=== PATIENT | female | born 1930 | race Two or more races ===

== ENCOUNTER 2020-09-20 13:03 | Emergency (ER) | payer MEDICARE, MEDICAID ==
[2020-09-20 13:12] VITALS: BP 154/81
--- NOTE | 2020-09-20 13:24 | ER Document Report ---
ED Medical Screen (RME) - General Chief Complaint: Arm Injury Stated Complaint: SHOULDER/ARM PAIN Time Seen by Provider: 09/20/20 13:19 Primary Care Provider: ANGELY STACK MD [Primary Care Provider] - Follow up as needed Notes: HPI: 89-year-old female presenting for left back and shoulder pain. Was moving a heavy object 3 days ago now with increasing pain radiating through the left trapezius region into the left shoulder region and down the arm. No anterior chest pain. Has been taking Motrin with no relief of the discomfort. PHYSICAL EXAMINATION: Mild tenderness to the left of the thoracic spine, trapezius region. No tenderness on palpation of the shoulder girdle directly or down the left arm I have greeted and performed a rapid initial assessment of this patient. A comprehensive ED assessment and evaluation of the patient, analysis of test results and completion of medical decision making process will be conducted by an additional ED providers. - Related Data Allergies/Adverse Reactions: No Known Allergies Allergy (Verified 09/20/20 13:20) Past Medical History - Social History Chew tobacco use (# tins/day): No Frequency of alcohol use: None Drug Abuse: None - Past Medical History Cardiac Medical History: Denies: Hx Coronary Artery Disease, Hx Heart Attack, Hx Hypertension Pulmonary Medical History: Denies: Hx Asthma, Hx Bronchitis, Hx COPD, Hx Pneumonia Neurological Medical History: Denies: Hx Cerebrovascular Accident, Hx Seizures Musculoskeltal Medical History: Denies Hx Arthritis Past Surgical History: Denies: Hx Pacemaker - Immunizations Hx Diphtheria, Pertussis, Tetanus Vaccination: No Physical Exam - Vital signs Vitals: Temp Pulse Resp BP Pulse Ox 98.4 F 79 16 154/81 H 98 09/20/20 13:09 09/20/20 13:09 09/20/20 13:09 09/20/20 13:09 09/20/20 13:09 Course - Vital Signs Vital signs: Temp Pulse Resp BP Pulse Ox 98.4 F 79 16 154/81 H 98 09/20/20 13:09 09/20/20 13:09 09/20/20 13:09 09/20/20 13:09 09/20/20 13:09 Doctor's Discharge - Discharge Referrals: ANGELY STACK MD [Primary Care Provider] - Follow up as needed
--- NOTE | 2020-09-20 14:30 | RADIOLOGY REPORT (SQ) ---
EXAM DESCRIPTION: SHOULDER LEFT 2 OR MORE VIEWS IMAGES COMPLETED DATE/TIME: 09/20/2020 12:43 pm REASON FOR STUDY: trauma. COMPARISON: None. NUMBER OF VIEWS: Three views. TECHNIQUE: Internal rotation, external rotation, and Y view images acquired of the left shoulder. LIMITATIONS: None. FINDINGS: MINERALIZATION: Osteopenia. BONES: No acute fracture. No worrisome bone lesions. JOINTS: No dislocation. VISUALIZED LUNGS AND RIBS: No pneumothorax. Chronic healed left lateral rib fractures. No acute fra cture. SOFT TISSUES: No radiopaque foreign body. OTHER: No other significant finding. IMPRESSION: No acute fracture or dislocation of the left shoulder. TECHNICAL DOCUMENTATION: JOB ID: [id number] 2010 [employer]- All Rights Reserved Reading location - IP/workstation name: [email or web address]
--- NOTE | 2020-09-20 14:32 | RADIOLOGY REPORT (SQ) ---
EXAM DESCRIPTION: T SPINE AP/LAT IMAGES COMPLETED DATE/TIME: 09/20/2020 12:43 pm REASON FOR STUDY: trauma. COMPARISON: None. NUMBER OF VIEWS: Two views. TECHNIQUE: AP and lateral radiographic images acquired of the thoracic spine. LIMITATIONS: None. FINDINGS: MINERALIZATION: Osteopenia. ALIGNMENT: S-shaped scoliotic curvature of the thoracolumbar spine. Accentuated kyphosis. VERTEBRAE: Evaluation is extremely limited on radiograph secondary to diffuse osteopenia. There are multiple compression deformities, age indeterminate. DISCS: Degenerative disc disease with loss of intervertebral disc heights. HARDWARE: None in the spine. MEDIASTINUM AND SOFT TISSUES: Normal heart size and aortic contour. No soft tissue abnormality. VISUALIZED LUNG SANCHEZ: Clear. OTHER: No other significant finding. IMPRESSION: Marked osteopenia limits evaluation on radiograph. Accentuated kyphosis and S-shaped sc oliotic curvature. Multiple ctip-is-wcotewmd compression deformities are age indeterminate. Clinica l correlation is recommended. CT or MRI may provide additional information as clinically indicated. TECHNICAL DOCUMENTATION: JOB ID: [id number] 2010 [employer]- All Rights Reserved Reading location - IP/workstation name: [email or web address]
--- NOTE | 2020-09-20 14:40 | ER Document Report ---
Entered by HALIE SHANE SCRIBE 09/20/20 1425 Acting as scribe for:TE CRAMER MD ED General - General Chief Complaint: Arm Injury Stated Complaint: SHOULDER/ARM PAIN Time Seen by Provider: 09/20/20 13:19 Primary Care Provider: ANGELY STACK MD [Primary Care Provider] - Follow up as needed Mode of Arrival: Ambulatory Information source: Patient Notes: This 89 year old female patient presents to the emergency department today with complaints of left upper back and left upper extremity pain. Patient is Yoruba speaking and is being translated by her son at bedside. She reports that she was moving a very large potted plant and developed this pain after. There has been no injury or trauma. - Related Data Allergies/Adverse Reactions: No Known Allergies Allergy (Verified 09/20/20 13:20) Past Medical History - General Information source: Patient - Social History Smoking Status: Never Smoker Cigarette use (# per day): No Chew tobacco use (# tins/day): No Frequency of alcohol use: None Drug Abuse: None Lives with: Family Family History: Reviewed & Not Pertinent Patient has homicidal ideation: No - Past Medical History Cardiac Medical History: Reports: Hx DVT, Hx Hypercholesterolemia Past Surgical History: Reports: Hx Cholecystectomy - Immunizations Hx Diphtheria, Pertussis, Tetanus Vaccination: No Review of Systems - Review of Systems Constitutional: No symptoms reported EENT: No symptoms reported Cardiovascular: No symptoms reported Respiratory: No symptoms reported Gastrointestinal: No symptoms reported Genitourinary: No symptoms reported Female Genitourinary: No symptoms reported Musculoskeletal: See HPI, Muscle pain, Muscle stiffness Skin: No symptoms reported Hematologic/Lymphatic: No symptoms reported Neurological/Psychological: No symptoms reported -: Yes All other systems reviewed and negative Physical Exam - Vital signs Vitals: Temp Pulse Resp BP Pulse Ox 98.4 F 79 16 154/81 H 98 09/20/20 13:09 09/20/20 13:09 09/20/20 13:09 09/20/20 13:09 09/20/20 13:09 - Notes Notes: Physical Exam: General: Alert, appears well. HEENT: Normocephalic. Atraumatic. PERRL. Extraocular movements intact. Oropharynx clear. Neck: Supple. Posterior cervical muscles are tender with palpation. Respiratory: No respiratory distress. Clear and equal breath sounds bilaterally. Cardiovascular: Regular rate and rhythm. Abdominal: Normal Inspection. Non-tender. No distension. Normal Bowel Sounds. Back: Left trapezius muscles are tender with palpation. No gross abnormalities. Extremities: Moves all four extremities. Upper extremities: Pain with active abduction of the left upper extremity. There is minimal shoulder tenderness to palpation. The biceps tendon is intact. No pain with flexion extension at the elbow. Lower extremities: Normal inspection. No edema. Normal ROM. Neurological: Normal cognition. AAOx4. Normal speech. Psychological: Normal affect. Normal Mood. Skin: Warm. Dry. Normal color. Course - Re-evaluation Re-evalutation: 09/20/20 15:42 A sling was placed on the left arm by the PCT. It fits well, it supports her arm and provide some comfort. - Vital Signs Vital signs: Temp Pulse Resp BP Pulse Ox 98.4 F 79 16 154/81 H 98 09/20/20 13:09 09/20/20 13:09 09/20/20 13:09 09/20/20 13:09 09/20/20 13:09 - Diagnostic Test Radiology reviewed: Image reviewed, Reports reviewed - T-spine x-rays show an S- shaped scoliotic curvature of the thoracolumbar spine with accentuated kyphosis. There is osteopenia. There is degenerative disc disease with loss of intravertebral disc heights. There are multiple mild to moderate compression deformities that are age-indeterminate. Radiology results interpreted by me: 09/20/20 15:[address] scan of the cervical spine read by the radiologist did not show acute injury. - EKG Interpretation by Me EKG shows normal: Sinus rhythm, [place], Intervals, QRS Complexes, ST-T Waves Rate: Normal - 64 Heart block present: 1st Degree Discharge - Discharge Clinical Impression: Strain of left trapezius muscle Qualifiers: Encounter type: initial encounter Qualified Code(s): S46.812A - Strain of other muscles, fascia and tendons at shoulder and upper arm level, left arm, initial encounter Condition: Stable Disposition: HOME, SELF-CARE Additional Instructions: Muscle Strain: You have strained your left trapezius muscle. This often occurs with strenuous exertion, or during an injury that suddenly stretches the muscle. The seriousness of a strain varies. Some strains heal within days, others cause problems for months. X-rays cannot show a muscle strain. X-rays are taken only if symptoms suggest that a fracture could be present. The usual treatment of a muscle strain is rest and ice packs. Sometimes a sling may be necessary to rest the muscle. The muscle can be used again once pain subsides. Severe strains require a special exercise and stretching program to prevent permanent stiffness and disability. Your doctor will advise you if this will be necessary. Call the doctor immediately if pain or swelling becomes severe, or if numbness or discoloration develop. Your x-rays and CT scans do not show evidence of an acute injury. Your physical findings are consistent with your history of trying to move a very heavy object and straining the muscles in the back of your shoulder on the left. You should use the sling to support the weight of your arm and allow the muscles to rest. Take Tylenol every 4 hours for pain if needed. Follow-up with your primary care provider if not improving. RETURN TO THE EMERGENCY ROOM IF ANY NEW OR WORSENING SYMPTOMS. Referrals: ANGELY STACK MD [Primary Care Provider] - Follow up as needed I personally performed the services described in the documentation, reviewed and edited the documentation which was dictated to the scribe in my presence, and it accurately records my words and actions.
--- NOTE | 2020-09-20 15:01 | EKG REPORT ---
SEVERITY:- ABNORMAL ECG - SINUS RHYTHM FIRST DEGREE AV BLOCK : Confirmed by: Maurice Weber MD 20-Sep-2020 15:01:20
--- NOTE | 2020-09-20 15:29 | RADIOLOGY REPORT (SQ) ---
EXAM DESCRIPTION: CT CERVICAL SPINE WITHOUT IMAGES COMPLETED DATE/TIME: 09/20/2020 12:45 pm REASON FOR STUDY: neck pain after fall. COMPARISON: None. TECHNIQUE: Axial images acquired through the cervical spine without intravenous contrast. Images re viewed with lung, soft tissue and bone windows. Reconstructed coronal and sagittal MPR images review ed. Images stored on PACS. All CT scanners at this facility use dose modulation, iterative reconstruction, and/or weight based d osing when appropriate to reduce radiation dose to as low as reasonably achievable (ALARA). [facility]: Dose Right [facility]: CareDose [facility]: Dose Right [facility]: Teradose 4D [facility]: [employer] RADIATION DOSE: CT Rad equipment meets quality standard of care and radiation dose reduction techniq ues were employed. CTDIvol: 10.3 mGy. DLP: 187 mGy-cm. mGy. LIMITATIONS: None. FINDINGS: ALIGNMENT: Mild anterolisthesis C5 on C6 approximately 2 mm. MINERALIZATION: Normal. VERTEBRAL BODIES: No acute fracture or loss of vertebral body height. Multilevel spondylosis with sm all marginal osteophytes. Endplate sclerosis and cystic change at the C4 inferior endplate. No lyti c or blastic bone lesion. DISCS: Degenerative disc disease with loss of intervertebral disc height and vacuum disc phenomenon a t multiple levels. FACETS, LATERAL MASSES, POSTERIOR ELEMENTS: Facet arthropathy with hypertrophy and subchondral cystic change. No significant neural foraminal stenosis. No fractures. No dislocation. No acute finding s. HARDWARE: None in the spine. VISUALIZED RIBS: No fractures. LUNG APICES AND SOFT TISSUES: No significant or acute findings. OTHER: No other significant finding. IMPRESSION: 1. No acute fracture or dislocation of the cervical spine. 2. Multilevel degenerative disc disease, spondylosis, spondylolisthesis and facet arthropathy. TECHNICAL DOCUMENTATION: JOB ID: [id number] Quality ID # [id number]: Final reports with documentation of one or more dose reduction techniques (e.g., Au tomated exposure control, adjustment of the mA and/or kV according to patient size, use of iterative reconstruction technique) 2010 [employer]- All Rights Reserved Reading location - IP/workstation name: [email or web address]
== END 2020-09-20 15:56 | disposition home or self-care (01) ==
LOC: ER 13:03
DX: S29.012A Strain of muscle and tendon of back wall of thorax, initial encounter (principal); M79.602 Pain in left arm; X50.0XXA Overexertion from strenuous movement or load, initial encounter; Y93.89 Activity, other specified; M85.88 Other specified disorders of bone density and structure, other site; M50.30 Other cervical disc degeneration, unspecified cervical region; M47.819 Spondylosis without myelopathy or radiculopathy, site unspecified; M40.205 Unspecified kyphosis, thoracolumbar region; I44.0 Atrioventricular block, first degree
CPT/HCPCS: 72070; 72125; 93005; 93010; 99285